=== PATIENT | female | born 1940 | race Caucasian/White ===

== ENCOUNTER 2020-10-11 11:17 | Inpatient (IN) ==
[2020-10-11 12:30] LABS: INR 1.29 (0.82-1.09)
[2020-10-11 12:35] LABS: ABS Monocytes 0.4 10^3/ul (0-0.8); ABS Neutrophils 0.9 10^3/ul (1.5-7.7); Eosinophil % 0.3 %; Hematocrit 33 % (35-47); Hemoglobin 11.2 g/dL (12.0-16.0); Lymphocyte % 42.3 %; Mean Corpuscular HGB Conc 34 g/dL (31-36); Mean Corpuscular Hemoglobin 35 pg (27-31); Mean Corpuscular Volume 100 fL (80-97); Mean Platelet Volume 7.4 fL (7.4-10.4); Nucleated Red Blood Cells % 0.2; Platelet Count 195 10^3/uL (150-450); Red Blood Count 3.25 10^6 /uL (3.70-4.87); Red Cell Distribution Width 20 % (10-15); White Blood Count 2.3 10^3/uL (3.5-10.8)
[2020-10-11 14:08] LABS: ALT 20 U/L (7-52); Albumin 3.2 g/dL (3.2-5.2); Albumin/Globulin Ratio 0.4 (1-3); Alkaline Phosphatase 21 U/L (34-104); Anion Gap 2 mmol/L (2-11); BUN/Creatinine Ratio 21.6 (8-20); Blood Urea Nitrogen 16 mg/dL (6-24); C Reactive Protein 1.66 mg/L (<8.01); CO2 Carbon Dioxide 20 mmol/L (22-32); Calcium 7.9 mg/dL (8.6-10.3); Chloride 101 mmol/L (101-111); Creatine Kinase 61 U/L (10-223); EGFR African American 90.9 (>60); EGFR Non-African American 75.1 (>60); Globulin 7.8 g/dL (2-4); Glucose 88 mg/dL (70-100); Sodium 123 mmol/L (135-145)
[2020-10-11] MEDS ORDERED: NS 0.9% 1000 ml BAG 1,000 ML IV ONE ×2 (14:08→14:13)
[2020-10-11 15:30] LABS: Potassium Redraw 3.7 mmol/L (3.5-5.0)
[2020-10-11] MEDS ORDERED: HYDROcodone/ACETAMIN 5/325 mg TAB PO PRN (16:25)
[2020-10-11] MEDS ORDERED: Ondansetron 4 mg VIAL 2 MG/ML 2 ml VIAL IV PRN (16:27)
[2020-10-11] MEDS ORDERED: NS 0.9% 1000 ml BAG 1,000 ML IV SCH (16:30)
[2020-10-11] MEDS: Enoxaparin 40 MG/0.4 ML SYR SUBCUT SCH (23:22)
[2020-10-12 08:01] LABS: ABS Lymphocytes 1.1 10^3/ul (1.0-4.8); ABS Monocytes 0.4 10^3/ul (0-0.8); Eosinophil % 0.1 %; Hematocrit 30 % (35-47); Hemoglobin 10.6 g/dL (12.0-16.0); Lymphocyte % 44.7 %; Mean Corpuscular HGB Conc 35 g/dL (31-36); Mean Corpuscular Hemoglobin 35 pg (27-31); Mean Corpuscular Volume 100 fL (80-97); Mean Platelet Volume 6.9 fL (7.4-10.4); Nucleated Red Blood Cells % 0.2; Platelet Count 194 10^3/uL (150-450); Red Blood Count 3.05 10^6 /uL (3.70-4.87); Red Cell Distribution Width 19 % (10-15); White Blood Count 2.4 10^3/uL (3.5-10.8)
[2020-10-12 08:17] LABS: Albumin 2.7 g/dL (3.2-5.2); Albumin/Globulin Ratio 0.4 (1-3); Calcium 7.7 mg/dL (8.6-10.3); EGFR African American 133.6 (>60); EGFR Non-African American 110.4 (>60); Globulin 7.1 g/dL (2-4); Magnesium 1.6 mg/dL (1.9-2.7); Potassium 3.2 mmol/L (3.5-5.0); Total Bilirubin 0.4 mg/dL (0.2-1.0); Total Protein 9.8 g/dL (6.4-8.9)
[2020-10-12] MEDS: Cholecalciferol (VIT D3) 1,000 unit TAB PO SCH (08:26)
[2020-10-12] MEDS: Vitamin THERAPEUTIC TAB PO SCH (08:27)
[2020-10-12] MEDS ORDERED: Magnesium Sulfate 2 gm BAG 2 GM/50 ML BAG IVPB ONE (10:52)
[2020-10-12] MEDS ORDERED: KCL 10 MEQ/50 ML IVPREMIX 10 MEQ/50 ML BAG IV ONE (10:52)
[2020-10-12] MEDS: NS 0.9% w/ 20 Meq KCL 1000 ml 1,000 ML IV SCH ×2 (11:11→20:31)
[2020-10-12] MEDS: Enoxaparin 40 MG/0.4 ML SYR SUBCUT SCH (17:43)
[2020-10-13 07:30] LABS: ABS Lymphocytes 0.7 10^3/ul (1.0-4.8); ABS Monocytes 0.3 10^3/ul (0-0.8); ABS Neutrophils 0.8 10^3/ul (1.5-7.7); Eosinophil % 0.4 %; Hematocrit 27 % (35-47); Hemoglobin 9.4 g/dL (12.0-16.0); Lymphocyte % 41.1 %; Mean Corpuscular HGB Conc 35 g/dL (31-36); Mean Corpuscular Hemoglobin 35 pg (27-31); Mean Corpuscular Volume 100 fL (80-97); Mean Platelet Volume 6.6 fL (7.4-10.4); Nucleated Red Blood Cells % 0.4; Platelet Count 170 10^3/uL (150-450); Red Blood Count 2.72 10^6 /uL (3.70-4.87); Red Cell Distribution Width 20 % (10-15); White Blood Count 1.8 10^3/uL (3.5-10.8)
[2020-10-13] MEDS: NS 0.9% w/ 20 Meq KCL 1000 ml 1,000 ML IV SCH ×2 (07:47→18:54)
[2020-10-13 09:32] LABS: Albumin 2.5 g/dL (3.2-5.2); Albumin/Globulin Ratio 0.4 (1-3); BUN/Creatinine Ratio 13.7 (8-20); Calcium 7.7 mg/dL (8.6-10.3); EGFR African American 139.7 (>60); EGFR Non-African American 115.5 (>60); Globulin 6.8 g/dL (2-4); Magnesium 1.7 mg/dL (1.9-2.7); Potassium 3.5 mmol/L (3.5-5.0); Total Bilirubin 0.3 mg/dL (0.2-1.0); Total Protein 9.3 g/dL (6.4-8.9)
[2020-10-13] MEDS: Cholecalciferol (VIT D3) 1,000 unit TAB PO SCH (09:57)
[2020-10-13] MEDS: Vitamin THERAPEUTIC TAB PO SCH (09:57)
[2020-10-13] MEDS ORDERED: Magnesium Sulfate 2 gm BAG 2 GM/50 ML BAG IVPB ONE (11:05)
[2020-10-13] MEDS: Enoxaparin 40 MG/0.4 ML SYR SUBCUT SCH (17:32)
[2020-10-14] MEDS: NS 0.9% w/ 20 Meq KCL 1000 ml 1,000 ML IV SCH (04:33)
[2020-10-14] MEDS: Cholecalciferol (VIT D3) 1,000 unit TAB PO SCH (09:42)
[2020-10-14] MEDS: Vitamin THERAPEUTIC TAB PO SCH (09:42)
[2020-10-14 11:58] LABS: BUN/Creatinine Ratio 9.4 (8-20); Calcium 8.1 mg/dL (8.6-10.3); EGFR African American 133.6 (>60); EGFR Non-African American 110.4 (>60); Magnesium 1.7 mg/dL (1.9-2.7); Potassium 3.7 mmol/L (3.5-5.0)
[2020-10-14 13:27] VITALS: BP 152/58
== END 2020-10-14 15:50 | disposition home or self-care (01) | DRG 640 ==
LOC: ED 11:17 → MED 16:34
PROVIDERS: ADMIT Internal Medicine Hematology & Oncology; ATTEND Internal Medicine Hematology & Oncology

== ENCOUNTER 2020-11-14 14:50 | Observation (INO) ==
[2020-11-14 16:40] LABS: Hematocrit 21 % (35-47); Hemoglobin 7.2 g/dL (12.0-16.0); Mean Corpuscular HGB Conc 35 g/dL (31-36); Mean Corpuscular Hemoglobin 35 pg (27-31); Mean Corpuscular Volume 101 fL (80-97); Mean Platelet Volume 7.2 fL (7.4-10.4); Platelet Count 172 10^3/uL (150-450); Red Blood Count 2.04 10^6 /uL (3.70-4.87); Red Cell Distribution Width 18 % (10-15); White Blood Count 3.1 10^3/uL (3.5-10.8)
[2020-11-14 17:05] LABS: Albumin 2.2 g/dL (3.2-5.2); BUN/Creatinine Ratio 11.2 (8-20); Calcium 9.4 mg/dL (8.6-10.3); EGFR African American 59.4 (>60); EGFR Non-African American 49.1 (>60); Potassium 3.6 mmol/L (3.5-5.0); Total Bilirubin 0.2 mg/dL (0.2-1.0)
[2020-11-14 17:45] LABS: Albumin/Globulin Ratio 0.2 (1-3); Globulin 10.3 g/dL (2-4); Total Protein 12.5 g/dL (6.4-8.9)
[2020-11-14 18:36] LABS: Polychromasia 1+
[2020-11-14 18:37] LABS: ABS Lymphocytes 1.1 10^3/ul (1.0-4.8); ABS Monocytes 0.4 10^3/ul (0-0.8); ABS Neutrophils 1.6 10^3/ul (1.5-7.7); Eosinophil % 0.5 %; Lymphocyte % 35.1 %; Nucleated Red Blood Cells % 0.4
[2020-11-14] MEDS ORDERED: Ondansetron 4 mg VIAL 2 MG/ML 2 ml VIAL IV PRN (18:38)
[2020-11-14] MEDS ORDERED: HYDROcodone/ACETAMIN 5/325 mg TAB PO PRN (18:41)
[2020-11-14 20:59] LABS: Urine Appearance Cloudy; Urine Bilirubin Negative (Negative); Urine Blood Negative (Negative); Urine Color Yellow; Urine Glucose Negative (Negative); Urine Ketones Negative (Negative); Urine Nitrite Negative (Negative); Urine Protein Negative (Negative); Urine Specific Gravity 1.018 (1.010-1.030); Urine Urobilinogen Negative (Negative)
[2020-11-15 05:08] LABS: Hematocrit 26 % (35-47); Hemoglobin 9.3 g/dL (12.0-16.0); Mean Corpuscular HGB Conc 36 g/dL (31-36); Mean Corpuscular Hemoglobin 34 pg (27-31); Mean Corpuscular Volume 94 fL (80-97); Mean Platelet Volume 6.5 fL (7.4-10.4); Platelet Count 164 10^3/uL (150-450); Red Blood Count 2.75 10^6 /uL (3.70-4.87); Red Cell Distribution Width 19 % (10-15); White Blood Count 3.6 10^3/uL (3.5-10.8)
[2020-11-15 05:24] LABS: Albumin 2.3 g/dL (3.2-5.2); BUN/Creatinine Ratio 10.1 (8-20); Calcium 9.3 mg/dL (8.6-10.3); EGFR Non-African American 53.7 (>60); Potassium 3.7 mmol/L (3.5-5.0); Total Bilirubin 0.4 mg/dL (0.2-1.0)
[2020-11-15 05:44] LABS: Albumin/Globulin Ratio 0.2 (1-3); Globulin 10.5 g/dL (2-4); Total Protein 12.8 g/dL (6.4-8.9)
[2020-11-15 07:17] LABS: ABS Lymphocytes 1.4 10^3/ul (1.0-4.8); ABS Monocytes 0.5 10^3/ul (0-0.8); ABS Neutrophils 1.7 10^3/ul (1.5-7.7); Eosinophil % 0.5 %; Lymphocyte % 37.3 %; Nucleated Red Blood Cells % 0.6
[2020-11-15] MEDS ORDERED: Cholecalciferol (VIT D3) 1,000 unit TAB PO SCH (09:00)
[2020-11-15 10:56] VITALS: BP 136/59
== END 2020-11-15 12:20 | disposition home or self-care (01) ==
LOC: MEDTELE 14:50 → ED 14:50 → MEDTELE 20:23
PROVIDERS: ADMIT Internal Medicine; ATTEND Student in an Organized Health Care Education/Training Program